=== PATIENT | male | born 1965 | race Caucasian/White ===

== ENCOUNTER 2020-02-14 13:00 | Emergency (ER) | payer OTHER, SELFPAY ==
--- NOTE | 2020-02-14 13:07 | ED.NECK ---
HPI - Neck Pain/Injury General Chief Complaint: Extremity Injury, Upper Stated Complaint: pinch nerve in neck/left arm pain Time Seen by Provider: 02/14/20 13:07 Source: patient and RN notes reviewed History of Present Illness HPI Narrative: Patient is a 54-year-old male that presents the urgent care with complaints of left neck pain radiating the left arm. Patient states that it started on Saturday and he is used ice, icy hot, heat, meloxicam without any improvement. 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 Patient denies any known trauma, injury, fall. Denies of any chest pain or radiation of pain to the jaw. No other acute complaints. No acute distress noted. Patient read the plan of care. Related Data Home Medications Medication Instructions Recorded Confirmed ergocalciferol (vitamin D2) 02/14/20 omeprazole 02/14/20 Allergies Allergy/AdvReac Type Severity Reaction Status Date / Time No Known Allergies Allergy Unverified 02/03/19 13:43 Review of Systems Review of Systems: Narrative: CONSTITUTIONAL: Denies fever, chills, or sweats. EYES: Denies visual changes, redness, or discharge. ENT: Denies rhinorrhea, congestion, sore throat, or otalgia. CARDIOVASCULAR: Denies chest pain, palpitations, or edema. RESPIRATORY: Denies cough or dyspnea. GASTROINTESTINAL: Denies abdominal pain, nausea, vomiting, or diarrhea. GENITOURINARY: Denies dysuria or hematuria. SKIN: Denies rash or itching. MUSCULOSKELETAL: Reports of left neck pain radiating down the left arm NEUROLOGIC: Denies headache, numbness, or weakness. All other systems reviewed are negative, except as documented in HPI. [facility] Family History Family History (Updated 10/31/18 @ 11:33 by DOCTOR UNKNOWN) Father Hypertension Mother Family history of diabetes mellitus in first degree relative Other Diabetes mellitus Social History Social History Smoking status: Heavy tobacco smoker Alcohol intake: current Comments At the time of my signature, I reviewed and agree with the nursing past medical, surgical, social, and family history. There is no relevant family history pertinent to the patient complaint. Exam Narrative: Exam Narrative: GENERAL: This is a well-nourished, well-developed patient, in no apparent distress. HEAD: normocephalic, atraumatic. EYES: PERRL. Sclera clear/white. Vision is grossly intact. EARS: External ears normal NOSE: External nose normal with no obvious nasal discharge THROAT: Mucous membranes moist NECK: Neck supple, mild left cervical tenderness, increased pain with right and left flexion SKIN: warm, intact with no suspicious lesions or rash, good texture and turgor. NEURO: awake, alert, and oriented to person, place and time. There were no obvious focal neurologic abnormalities. EXTREMITIES: No clubbing, cyanosis, or edema. Range of motion to left upper extremity within normal limits, bilateral equal rumper BACK: Nontender without deformity or crepitance. No flank tenderness. Course Vital Signs Vital signs: Vital Signs Temperature 97.7 F 02/14/20 13:22 Pulse Rate 73 02/14/20 13:22 Respiratory Rate 20 02/14/20 13:22 Blood Pressure 134/97 H 02/14/20 13:22 Pulse Oximetry 100 02/14/20 13:22 Temperature 97.7 F 02/14/20 13:22 Pulse Rate 73 02/14/20 13:22 Respiratory Rate 20 02/14/20 13:22 Blood Pressure 134/97 H 02/14/20 13:22 Pulse Oximetry 100 02/14/20 13:22 Reviewed-patient is informed that they may have pre-hypertension or hypertension based on a blood pressure reading in the department. I recommend the patient call the primary care provider listed on their discharge instructions or a physician of their choice this week to arrange follow-up for further evaluation of possible pre-hypertension or hypertension. MDM - Neck Pain/Injury MDM Narrative Medical decision making narrative: Advised the patient to complete steroid regimen as
[2020-02-14 13:22] VITALS: BP 134/97; PULSE 73; RESP 20; TEMP 36.5; O2SAT 100
== END 2020-02-14 13:36 | disposition home or self-care (01) ==
PROVIDERS: Emergency Provider Nurse Practitioner Family; PCP Family Medicine
DX: S16.1XXA Strain of muscle, fascia and tendon at neck level, initial encounter (principal); X50.3XXA Overexertion from repetitive movements, initial encounter; K21.9 Gastro-esophageal reflux disease without esophagitis
CPT/HCPCS: 99213; G0463

== ENCOUNTER 2020-11-26 09:38 | Emergency (ER) | payer OTHER, SELFPAY ==
--- NOTE | ~2020-11-26 | XR_ITS ---
XR finger 2nd RT min 2V DATE: 11/26/2020 10:04 INDICATION: Infected wound right: second proximal interphalangeal joint area TECHNIQUE: 3 views COMPARISON: None FINDINGS: There is joint space narrowing and prominent spurring and degenerative ossicle formation at the distal interphalangeal joint consistent with osteoarthritis. No fracture, dislocation, periosteal reaction or bone destruction is evident. No abnormal soft tissue calcification or foreign body is noted otherwise. No subcutaneous emphysema. IMPRESSION: Osteoarthritis the distal interphalangeal joint Reviewed, dictated and finalized at location A. 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
--- NOTE | 2020-11-26 09:50 | ED.SKABFB ---
HPI - Skin/Abscess/Foreign Bdy General Chief complaint: Extremity Injury, Upper Stated complaint: right infected index finger Time Seen by Provider: 11/26/20 09:50 Source: patient and RN notes reviewed Mode of arrival: ambulatory Limitations: no limitations History of Present Illness HPI narrative: 55 yo male presents to the [facility] with C/O right index finger pain and swelling for 4-5 days. Hernandez aspect right index finger DIP joint there is a small white lesion with dark center. NO flucuance noted. Unknown if he injured the area. Has been using ice and Epson salt soaks. Related Data Home Medications Medication Instructions Recorded Confirmed lisinopril [Zestril] 10 mg PO DAILY 11/26/20 11/26/20 Allergies Allergy/AdvReac Type Severity Reaction Status Date / Time No Known Allergies Allergy Verified 11/26/20 09:49 Review of Systems Review of Systems: Narrative: CONSTITUTIONAL: Denies fever, chills, or sweats. CARDIOVASCULAR: Denies chest pain, palpitations, or edema. RESPIRATORY: Denies cough or dyspnea. GASTROINTESTINAL: Denies abdominal pain, nausea, vomiting, or diarrhea. GENITOURINARY: Denies dysuria or hematuria. SKIN: Denies rash or itching. Redness and swelling to the Right 2nd finger MUSCULOSKELETAL: Denies back pain, joint pain, or myalgia. NEUROLOGIC: Denies headache, numbness, or weakness. PSYCHIATRIC: Denies anxiety or depression. All other systems reviewed are negative, except as documented in HPI. [facility] Past Medical History Medical History (Updated 11/26/20 @ 10:32 by Roberta Bridges) Appendicitis 2014 GERD (gastroesophageal reflux disease) Hypertension Family History Family History Father Hypertension Mother Family history of diabetes mellitus in first degree relative Other Diabetes mellitus Social History Social History Smoking status: Heavy tobacco smoker Alcohol intake: current Gender identity (if verbalized by the patient): Male Comments At the time of my signature, I reviewed and agree with the nursing past medical, surgical, social, and family history. There is no relevant family history pertinent to the patient complaint. Exam Narrative: Exam Narrative: GENERAL: This is a well-nourished, well-developed patient, in no apparent distress. HEAD: normocephalic, atraumatic. EYES: PERRL. Sclera clear/white. EARS: External ears normal. CARDIOVASCULAR: Regular rate. Positive radial pulse, right SKIN: warm, intact with no suspicious lesions or rash, good texture and turgor. Redness and swelling to second right finger. Pain in the DIP joint. Small white area with dark center at the DIP joint hernandez aspect. NEURO: awake, alert, and oriented to person, place and time. There were no obvious focal neurologic abnormalities. EXTREMITIES: No clubbing, cyanosis. joint tenderness DIP right 2nd finger. BACK: Nontender without deformity. Extrem: Hand/finger images: 1. less then 0.5 cm area white. Swelling to the finger. 2 seconds. Sensation intact distal. Course Vital Signs Vital signs: Vital Signs Temperature 97.9 F 11/26/20 09:52 Pulse Rate 66 11/26/20 09:52 Respiratory Rate 16 11/26/20 09:52 Blood Pressure 140/88 11/26/20 09:52 Pulse Oximetry 98 11/26/20 09:52 Temperature 97.9 F 11/26/20 09:52 Pulse Rate 66 11/26/20 09:52 Respiratory Rate 16 11/26/20 09:52 Blood Pressure 140/88 11/26/20 09:52 Pulse Oximetry 98 11/26/20 09:52 Reviewed Procedures Abscess I/D hand: Date of Incision: 11/26/20 Time of Incision: 10:15 Side (if applicable): right Sedation/analgesia: none Local Anesthetic: none Technique: needle aspiration Amount of fluid expressed (mL): 0.5 Packing used?: none I&D Results: Pus Complications: pain and bleeding (Area cleaned with Betadine, needle aspir
[2020-11-26 09:52] VITALS: BP 140/88; PULSE 66; RESP 16; TEMP 36.6; O2SAT 98
== END 2020-11-26 10:27 | disposition home or self-care (01) ==
PROVIDERS: Emergency Provider Nurse Practitioner; PCP Family Medicine
DX: L03.011 Cellulitis of right finger (principal); L02.511 Cutaneous abscess of right hand; F17.200 Nicotine dependence, unspecified, uncomplicated; K21.9 Gastro-esophageal reflux disease without esophagitis; I10 Essential (primary) hypertension
CPT/HCPCS: 26010; 73140; 87070; 87075; 87147; 87186; 87205; 99213; G0463

== ENCOUNTER 2021-09-30 20:21 | Emergency (ER) | payer OTHER, SELFPAY ==
[2021-09-30] VITALS (13 sets, daily range): BP systolic 102–119; BP diastolic 56–75; PULSE 76–89; RESP 12–21; TEMP 36.4; O2SAT 94–100
--- NOTE | ~2021-09-30 | CT_ITS ---
EXAMINATION: CT brain wo con EXAM DATE: 09/30/2021 21:50 INDICATION: Head injury. TECHNIQUE: Spiral CT of the head was performed without contrast. Axial, coronal and sagittal images were reviewed. The dose-length product (DLP) for this examination was 605.33 mGy-cm. The exposure w as tailored according to patient size, and iterative reconstruction (ASIR) was used as additional dos e reduction technique. Comparison is made to prior examination from 02/03/2019. FINDINGS: There is no acute intraparenchymal hemorrhage. No evidence of intraparenchymal brain mass lesion. No evidence of acute infarction. There is no mass effect or midline shift. The ventricles are normal in size. There are no extra-axial collections. There are no acute calvarial fractures. T he orbits are unremarkable. Soft tissue is unremarkable. The visualized sinuses and mastoid air dorina ls are well aerated. Nondisplaced right nasal bone fracture. IMPRESSION: 1. No acute intracranial findings. 2. Nondisplaced right nasal bone fracture. Reviewed, dictated and finalized at location A. 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
--- NOTE | ~2021-09-30 | CT_ITS ---
EXAMINATION: CT facial & cervical spine wo EXAM DATE: 09/30/2021 21:51 INDICATION: facial injury . TECHNIQUE: Spiral CT of the facial bones was acquired in the axial plane. Coronal reformatted images were also reviewed. Spiral CT of the cervical spine was performed without contrast. Axial images we re reviewed. Coronal and sagittal reformatted images were also reviewed. The dose-length product (DL P) for this examination was 518.17 mGy-cm. The exposure was tailored according to patient size, and iterative reconstruction (ASIR) was used as additional dose reduction technique. There is no prior s tudy for comparison. FINDINGS: FACIAL CT: Acute nondisplaced right nasal bone fracture. Evidence of nasal, right frontal laceration s, soft tissue contusions. The orbits, globes and extraocular muscles are unremarkable. The visual ized sinuses and mastoid air cells are well aerated. CERVICAL CT: There is no evidence of acute cervical fracture. The odontoid process is intact. Pre-d ens space is normal. Prevertebral soft tissue is normal. There are no soft tissue abnormalities loyda ntified. There is no disc space widening or traumatic vertebral body subluxation suspected. Moderat e spondylosis at C5-6, mild at the other levels. A detailed level by level evaluation of spondylosis can be added as addendum if requested. IMPRESSION: 1. Acute nondisplaced right nasal bone fracture. 2. Cervical spondylosis without fracture. Reviewed, dictated and finalized at location A. [employer] MI[employer]BIOLOGIST
--- NOTE | 2021-09-30 21:04 | ED.GENADULT ---
HPI - General Adult General Chief complaint: Head Injury Stated complaint: fall, etoh Time Seen by Provider: 09/30/21 20:42 History of Present Illness HPI narrative: 56-year-old male presents to the emergency department for evaluation of facial injuries after a ground-level fall. Patient was intoxicated and walking in his backyard when he lost his balance causing him to fall and strike his face on a pile of bricks. Patient states that he did not have loss of consciousness. Patient states he was having trouble getting up. Ultimately patient was able to get up and make it into the house was able to change his clothes. Patient was brought to the emergency room by EMS for evaluation. Patient does complain of facial and neck pain. Patient denies any other pain or injury. In the emergency department patient is alert and appropriate. Patient is unsure when his last tetanus shot was. Related Data Home Medications Medication Instructions Recorded Confirmed lisinopril [Zestril] 10 mg PO DAILY 11/26/20 11/26/20 omeprazole 09/30/21 09/30/21 Allergies Allergy/AdvReac Type Severity Reaction Status Date / Time No Known Allergies Allergy Verified 10/03/21 13:59 Review of Systems Review of Systems: CONSTITUTIONAL: Denies fever, chills, or sweats. EYES: Denies visual changes, redness, or discharge. ENT: Denies rhinorrhea, congestion, sore throat, or otalgia. CARDIOVASCULAR: Denies chest pain, palpitations, or edema. RESPIRATORY: Denies cough or dyspnea. GASTROINTESTINAL: Denies abdominal pain, nausea, vomiting, or diarrhea. GENITOURINARY: Denies dysuria or hematuria. SKIN: Abrasions to face from fall MUSCULOSKELETAL: Does have neck pain after the fall. Denies any other back or musculoskeletal injury. NEUROLOGIC: Denies headache, numbness, or weakness. PSYCHIATRIC: Denies anxiety or depression. [facility] Past Medical History Medical History Appendicitis 2015 GERD (gastroesophageal reflux disease) Hypertension Family History Family History Father Hypertension Mother Family history of diabetes mellitus in first degree relative Other Diabetes mellitus Social History Social History Smoking status: Heavy tobacco smoker Alcohol intake: current Gender identity (if verbalized by the patient): Male Exam Narrative: APPEARANCE: Well appearing, no pain in distress, well-nourished. HEAD: normocephalic, abrasions to forehead and nasal bridge EYES: PERRLA/EOMI, conjunctivae clear. NOSE: Normal no drainage. Abrasions with some tenderness to palpation. Both nares patent EARS:TMS clear with good light reflex. NECK: Supple. No adenopathy, no masses. Remained in c-collar RESPIRATORY: Airway patent, respirations nonlabored. Clear to auscultation bilaterally, no rales, rhonchi, wheezing. CARDIOVASCULAR: Regular rate and rhythm without murmurs rubs or gallops. ABDOMINAL: Soft, nontender, nondistended, normal bowel sounds MUSCULOSKELETAL: Moves all extremities. Strength/ROM intact, No edema, No calf tenderness. NEURO: Alert. Cranial nerves II through XII intact. Good gait. Good coordination SKIN: Abrasions to face PSYCHIATRIC: Normal affect/mood. Course Course Emergency Course: patient was updated on the plan for imaging and treatment of abrasions. abrasions on face were cleansed. no suture repair necessary. Patient was updated on the results of the imaging. All questions and concerns were addressed. Vital Signs Vital signs: Vital Signs Temperature 97.6 F 09/30/21 20:22 Pulse Rate 89 09/30/21 20:22 Respiratory Rate 17 09/30/21 20:22 Blood Pressure 109/75 09/30/21 20:22 Pulse Oximetry 100 09/30/21 20:22 Temperature 97.6 F 09/30/21 20:22 Pulse Rate 85 09/30/21 23:42 Respiratory Rate 13 09/30/21 23:42 Blood Pressure 102/57
[2021-09-30] MEDS: TETANUS,DIPHTHERIA,AC PERTUSSIS ADULT (0.5 ML) BOOSTRIX IM (21:28)
--- NOTE | 2021-09-30 21:50 | PC.NURSE ---
Patient in CT at this time.
== END 2021-09-30 23:37 | disposition home or self-care (01) ==
PROVIDERS: Emergency Provider Emergency Medicine; PCP Family Medicine
DX: S02.2XXA Fracture of nasal bones, initial encounter for closed fracture (principal); S00.81XA Abrasion of other part of head, initial encounter; F17.200 Nicotine dependence, unspecified, uncomplicated; Z23 Encounter for immunization; W18.39XA Other fall on same level, initial encounter; Y92.007 Garden or yard of unspecified non-institutional (private) residence as the place of occurrence of the external cause
CPT/HCPCS: 70450; 70486; 72125; 90471; 90715; 99284